=== PATIENT | female | born 1975 | race Caucasian/White ===

== ENCOUNTER 2024-09-30 18:42 | Emergency (ER) | payer SELFPAY ==
[2024-09-30] MEDS ORDERED: ATROPINE SULF 1 MG/10 ML SYR IV ONE (18:43)
[2024-09-30] MEDS ORDERED: SODIUM CHL 0.9% 1000 ML BAG IV ONE (18:43)
[2024-09-30] MEDS ORDERED: Calcium Chloride 10% INJ SYR IV ONE (18:43)
[2024-09-30] MEDS ORDERED: EPINEPHrine 1 MG/10 ML SYR IV ONE (18:43)
[2024-09-30] MEDS ORDERED: D50W 25 GM/50 ML SYRINGE IV ONE (18:43)
[2024-09-30] MEDS ORDERED: SODIUM CHL 0.9% 250 ML BAG IV ONE (18:43)
[2024-09-30] MEDS ORDERED: NOREPINEPHRINE BITARTRATE/D5W 4 MG/250 ML BAG IV ONE ×3 (19:06→23:22)
[2024-09-30 19:32] LABS: Protime INR 3.25
[2024-09-30 19:34] LABS: Absolute Eosinophils 0.1 K/uL (0-0.5); Absolute Monocytes 0.2 K/uL (0.1-1.3); Hematocrit 25.7 % (36.0-45.0); Hemoglobin 7.4 g/dL (12.0-15.0)
[2024-09-30] MEDS ORDERED: NA CHLORIDE 0.9% 250 ML ONE (19:42)
[2024-09-30 19:50] LABS: ALT/SGPT 309 U/L (13-56); Albumin 1.4 g/dL (3.4-5.0); Albumin/Globulin Ratio 0.6 (1.1-1.8); Alkaline Phosphatase 165 U/L (45-117); Anion Gap 36.9 mEq/L (5.0-15.0); BUN Blood Urea Nitrogen 44 mg/dL (7-18); Bilirubin Direct 0.2 mg/dL (0-0.2); Bilirubin Indirect, Calculated 0.1 mg/dL (0.2-0.8); Bilirubin Total 0.3 mg/dL (0.2-1.0); Globulin 2.4 g/dL (2.3-3.5); Glomerular Filtration Rate 35 ml/min (=/>90); Glucose Level 105 mg/dL (74-106); NT PRO-BNP 22168 pg/mL (<125); Protein, Total 3.8 g/dL (6.4-8.2); Sodium Level 140 mEq/L (136-145); Troponin High Sensitivity 17.1 pg/mL (<58.9)
[2024-09-30 19:52] LABS: AST/SGOT 622 U/L (15-37); Bicarbonate < 8 mEq/L (21-32); Magnesium 3.4 mg/dL (1.6-2.4)
[2024-09-30 19:54] LABS: Potassium 8.9 mEq/L (3.5-5.1)
[2024-09-30 20:10] LABS: Absolute Lymphocytes (CBC) 3.2 K/uL (0.7-4.9); Basophils % 0.7 % (0-1.3); Eosinophils % 1.1 % (0-4.4); MCH 31.6 pg (27.0-35.0); MCHC 28.7 g/dL (32.0-36.0); Monocytes % 3.8 % (3.3-12.3); Neutrophils % 45.4 % (41.7-73.7); Nucleated RBC Absolute Count 0.2 (0-0); Nucleated Red Blood Cells % 2.3 % (0-0); Platelets 447 thou/uL (152-406); RBC Red Blood Cell Count 2.34 M/uL (3.86-4.86); Red Cell Distribution Width 16.6 % (12.1-15.2)
[2024-09-30] MEDS ORDERED: INSULIN REGULAR (HUMAN) 100 UNIT/ML ONE (20:20)
[2024-09-30] MEDS ORDERED: NA CHLORIDE 0.9% 100 ML ONE ×2 (20:22→20:41)
[2024-09-30] MEDS ORDERED: TRANEXAMIC ACID 1,000 MG/10 ML VIAL IV ONE (20:22)
--- NOTE | 2024-09-30 20:23 | RAD REPORT ---
EXAMINATION: ONE VIEW CHEST XR CLINICAL INDICATION: Female, 49 years old.,rosc TECHNIQUE: Frontal chest projection is submitted. Examination is limited by patient positioning and t echnique. COMPARISON: No prior exam. FINDINGS: Endotracheal tube terminates 1.5 cm from the kirsty, directed somewhat to the right. Left IJ CVC reac hes the distal subclavian or innominate artery, but then curves again peripherally, its tip reaching the junction with the axillary vein. Enteric tube courses below the lower margin. Patchy air space opacities most notably in the peripheral right upper to midlung. Pronounced soft tissue along the right chest wall. Central interstitial prominence. No pneumothorax or sizable effusion. The hear t is normal in size. Mediastinal contours are unremarkable. IMPRESSION: Left IJ CVC is malpositioned, curving backwards along the subclavian vein, terminating near the junct ion with the axillary vein. Please consider repositioning. Patchy peripheral right upper to midlung airspace opacity, could relate to sequelae of aspiration, pu lmonary contusion, or early airspace disease. Other findings as above.
--- NOTE | 2024-09-30 20:26 | ER ---
Nurse's Notes [facility] Name: Elvia Pennington Age: 49 yrs Sex: Female : 1975 Arrival Date: 09/30/2024 Time: 18:42 Bed DIS6 Private MD: Diagnosis: Cardiopulmonary arrest;Hemorrhagic shock;Hyperkalemia;Diffuse subcutaneous emphysema, advanced brain hypoxia, intraperitoneal fluid, ileus, aspiration pneumonitis, ARDS, hyperkalemia, metabolic acidosis, high anion gap metabolic acidosis;Acute hypoxic respiratory failure, multiple organ failure Presentation: 09/30 18:42 Chief complaint: EMS states: CARDIOPULMONARY ARREST. Care prior to arrival: Assisted bp ventilation, Oral airway placed, CPR via thumper performed by bystander performed by EMS and is still in progress Medication(s) given: D50, 1 amp, EPI x4, BICARB x1 IV initiated. LEFT TIB IO Glucose check: 50. Compressions began at 17:45. 18:42 Method Of Arrival: EMS: [facility], [place] bp 18:42 Acuity: NASIM 1 bp 19:17 Coronavirus screen: At this time, the client does not indicate any symptoms associated bp with coronavirus-19. Ebola Screen: No symptoms or risks identified at this time. Initial Sepsis Screen: Does the patient meet any 2 criteria? No. Patient's initial sepsis screen is negative. Does the patient have a suspected source of infection? No. Patient's initial sepsis screen is negative. Risk Assessment: Do you want to hurt yourself or someone else? Unable to obtain. Onset of symptoms is unknown. 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 - Infectious Disease History:: unknown, CPR, unresponsive. - Family history:: not pertinent. - Social history:: Smoking status: unknown. Screenin:42 Abuse screen: Denies threats or abuse. Denies injuries from another. Nutritional bp screening: No deficits noted. Tuberculosis screening: No symptoms or risk factors identified. 19:14 [facility] ED Fall Risk Assessment (Adult) History of falling in the last 3 months, bp including since admission No falls in past 3 months (0 pts) Confusion or Disorientation No (0 pts) Intoxicated or Sedated Yes (3 pts) Impaired Gait No (0 pts) Mobility Assist Device Used No (0 pt) Altered Elimination Yes (1 pt) Score/Fall Risk Level 3 or more points = High Risk Maintained a safe environment. Assessment: 18:42 CPR assessment: unresponsive, pupils fixed \T\ dilated, no respiratory effort, Ambu bp ventilation, pulses present w/ compressions. Cardiac rhythm is PEA. General: Appears distressed, Behavior is unresponsive. Neuro: Level of Consciousness is unresponsive. EENT: No deficits noted. Cardiovascular: Rhythm is PEA. Respiratory: Airway is compromised. GI: COFFEE GROUND EMESIS. : No signs and/or symptoms were reported regarding the genitourinary system. Derm: No signs and/or symptoms reported regarding the dermatologic system. 18:42 Reassessment: PEA, CPR IN PROCESS. bp 18:43 Reassessment: EPI x1. bp 18:44 Reassessment: BGL 109, PEA. bp 18:46 Reassessment: PEA, EPI x1. bp 18:47 Reassessment: INTUBATED 7.5 \T\ 23. bp 18:49 Reassessment: SLOW PEA, ATROPINE x1. bp 18:51 Reassessment: PEA, EPI x1. bp 18:53 Reassessment: ROSC. bp 19:00 General: Appears in no apparent distress. Behavior is unresponsive. Pain: Unable to use al5 pain scale. Patient is intubated. Patient is unresponsive. 19:00 Neuro: Level of Consciousness is unresponsive, Oriented to none Pupils are fixed, al5 dilated. Cardiovascular: Pulses are palpable in right femoral artery, left femoral artery, left carotid pulse and right carotid pulse. Respiratory: Airway via oral intubation Respiratory effort is even, unlabored, Respiratory pattern is regular, symmetrical, Ventilator assessment: ET Tube: 7.5 23 cm at lip. Tidal Volume: 450 Respiratory Rate: 22 FiO2: 100%. PEEP: 5. GI: Abdomen is round distended. : No signs and/or symptoms were reported regarding the genitourinary system. EENT: No deficits noted. Derm: Skin is intact, Skin is dry, Skin is dusky, mottled. Musculoskeletal: No signs and/or symptoms reported regarding the musculoskeletal system. 20:00 Reassessment: Patient appears in no apparent distress at this time. No changes from al5 previously documented assessment. 20:18 Reassessment: patient went into PEA, CPR started at this time. MD at bedside. al5 20:22 Reassessment: ROSC at this time. al5 21:00 Reassessment: Patient appears in no apparent distress at this time. No changes from al5 previously documented assessment. 21:30 Reassessment: removed central line from L IJ per MD verbal order. al5 21:53 Reassessment: patient taken to CT at this time. al5 22:07 Reassessment: Patient appears in no apparent distress at this time. No changes from al5 previously documented assessment. 23:00 Reassessment: Patient appears in no apparent distress at this time. No changes from al5 previously documented assessment. 10/01 00:00 Reassessment: Patient appears in no apparent distress at this time. No changes from al5 previously documented assessment. 00:34 Reassessment: report given to life flight. al5 00:51 Reassessment: report given to ema GUZMAN at [facility]. al5 01:00 Reassessment: Patient appears in no apparent distress at this time. No changes from al5 previously documented assessment. gave report to life flight nurse. Vital Signs: 09/30 19:00 BP 67 / 48; Pulse 91; Resp 18; Pulse Ox 100% on ETT vent; Weight 65.77 kg; vc1 19:15 BP 71 / 57; Pulse 82; Resp 19; Pulse Ox 100% on ETT vent; al5 19:30 BP 62 / 48; Pulse 82; Resp 17; Pulse Ox 97% on ETT vent; al5 20:00 al5 20:23 al5 20:35 BP 108 / 64; Pulse 90; Resp 23; Temp 94.1(Ca); Pulse Ox 85% ; vc1 20:55 BP 83 / 53; Pulse 69; Resp 23; Pulse Ox 96% on ETT vent; al5 21:07 al5 22:15 BP 107 / 74; Pulse 97; Resp 23; Pulse Ox 99% on ETT vent; al5 22:30 BP 100 / 73; Pulse 97; Resp 23; Temp 93.7; Pulse Ox 100% on ETT vent; al5 22:45 BP 111 / 64; Pulse 108; Resp 22; Pulse Ox 99% on ETT vent; al5 23:00 BP 98 / 73; Pulse 109; Resp 22; Temp 93.5; Pulse Ox 99% on ETT vent; al5 23:15 BP 102 / 71; Pulse 107; Resp 22; Temp 93.4; Pulse Ox 99% on ETT vent; al5 23:30 BP 97 / 67; Pulse 108; Resp 22; Temp 93.4; Pulse Ox 100% on ETT vent; al5 23:45 BP 100 / 68; Pulse 106; Resp 22; Temp 93.3; Pulse Ox 100% on ETT vent; al5 03 00:00 BP 95 / 64; Pulse 105; Resp 22; Temp 93.3; Pulse Ox 100% on ETT vent; al5 00:15 BP 90 / 65; Pulse 108; Resp 22; Temp 93.4; Pulse Ox 99% on ETT vent; al5 00:30 BP 93 / 61; Pulse 103; Resp 22; Temp 93.4; Pulse Ox 100% on ETT vent; al5 00:45 BP 94 / 68; Pulse 104; Resp 23; Pulse Ox 99% on ETT vent; al5 03 20:00 see blood transfusion flow record for vitals al5 20:23 see blood transfusion flow sheet for vitals al5 21:07 see blood transfusion flow sheet for vitals al5 Nemo Coma Score: 23:46 Eye Response: none(1). Modifying Factors: Intubated. Motor Response: none(1). Verbal sp4 Response: none(1). Total: 3. ED Course: 18:46 Patient arrived in ED. db 18:47 Patient has correct armband on for positive identification. Intubation: 7.5 Fr. ETT bp placed orally. Performed by Aguilar Francisco MD Successful on first attempt. Placement verified by CO2 detector w/ + color change, auscultating bilateral breath sounds, Ventilated with Ambu bag. 18:54 Aguilar Francisco MD is Attending Physician. rt 19:00 Inserted saline lock: 18 gauge in right EJ, using aseptic technique. Blood collected. bp Flushed with 10 mL NS. NGT: inserted 14 Fr. other ORAL verified return of gastric contents, Placement verified by X-ray, to intermittent suction. Returned gastric contents. Initial lab(s) drawn, by me. 19:00 Arm band placed on right wrist. vc1 19:05 Nick Goode, RN is Primary Nurse. bp 19:08 Triage completed. bp 19:16 Provided Education on: NA. bp 19:20 Assisted provider with central line placement. Set up central line tray. Triple lumen vc1 line placed in left internal jugular. Line placed by Aguilar Francisco MD Placement verified by CXR, blood return, Dressed with Tegaderm, Blood was collected. Patient tolerated well. Time-out/Briefing performed prior to start of procedure? Yes. Was handwashing/sanitizing done immediately prior to procedure? Yes. Was patient positioned to in a way to prevent air embolism? Yes. Was procedure site sterilized? Yes, with chlorhexidine. Was the site allowed to dry? Yes. Was local anesthetic and/or sedation utilized? No. During the procedure, did the Practitioner(s) maintain a sterile field? Yes. Were unused ports clamped during insertion? Yes. Was a 2nd qualified MD obtained after 3 unsuccessful insertion attempts? N/A. Was blood aspirated from each lumen? Yes. After the procedure, did the Practitioner(s) clean the site and apply a sterile dressing? Yes. 19:34 Hogan cath inserted, using sterile technique, 16 Fr., by me, balloon inflated, to al5 gravity drainage, clamped. Patient tolerated well. 19:43 XRAY Chest (1 view) In Process Unspecified. EDMS 19:45 Abdomen Single View In Process Unspecified. EDMS 20:57 Attending Physician role handed off by Aguilar Francisco MD sp4 20:57 Madi Durbin MD is Attending Physician. sp4 21:23 Assisted provider with central line placement. Set up central line tray. Triple lumen al5 line placed in right femoral. Line placed by Madi Durbin MD Placement verified by blood return, Dressed with Tegaderm, Blood was collected. Patient tolerated well. Time-out/Briefing performed prior to start of procedure? Yes. Was handwashing/sanitizing done immediately prior to procedure? Yes. Was patient positioned to in a way to prevent air embolism? Yes. Was procedure site sterilized? Yes, with chlorhexidine. Was the site allowed to dry? Yes. Was local anesthetic and/or sedation utilized? No. During the procedure, did the Practitioner(s) maintain a sterile field? Yes. Were unused ports clamped during insertion? Yes. Was a 2nd qualified MD obtained after 3 unsuccessful insertion attempts? No. Was blood aspirated from each lumen? Yes. After the procedure, did the Practitioner(s) clean the site and apply a sterile dressing? Yes. 21:39 initiated transfer with [facility] spoke with Paulina \T\ 2025. vk 22:12 Angio Aorta For Dissection In Process Unspecified. EDMS 22:16 Patient was accepted to [facility] MICU per transfer center to Dr. Jordan russo \T\[id number], Report# [phone], Admin Approval Paulina Coto\T\2208. 22:55 Paulina from [facility] called and advised that at this time they vk will be putting the transfer on hold till the patient is more stable to transport via Life flight Dr. Durbin aware. 23:19 Per transfer center Paulina advised potassium level was to high for transfer and requested vk to call back when levels dropped. 03 00:12 Paulina from transfer center was called and updated on lower potassium level, Soskyler then vk asked about the ABGPH level advised on what it was, she asked for a repeat, when advised of new levels Paulina then stated that she would call back for ICU doc to doc. 00:40 Paulina from transfer center called and advised she would initiate transfer with [facility] life flight ETA 10 mins. 01:30 Patient transferred, IV remains in place. al5 01:30 One on one care 6 hours. al5 Administered Medications: 09/30 19:07 Drug: Norepinephrine IV 0.1 mcg/kg/min IV at calculated rate See Administration al5 Instructions; (Standard concentration 4 mg / 250 mL D5W); Recommended max rate 3 mcg/kg/min; Titrate 0.05 mcg/kg/min as often as every 5 minutes to achieve goal (see titration policy); Goal parameter MAP greater than 65 mmHg. Route: IV; Rate: calculated rate; Site: left jugular; 19:23 Follow up: Response: No adverse reaction; Blood pressure is unchanged; Rate change 25 al5 mcg/min 19:31 Follow up: Response: No adverse reaction; Blood pressure is unchanged; Rate change 30 al5 mcg/min 20:23 Follow up: Response: No adverse reaction; Rate change 20 mcg/min al5 20:27 Follow up: Response: No adverse reaction; Rate change 10 mcg/min al5 20:38 Follow up: Response: No adverse reaction; Blood pressure is elevated; Rate change 20 al5 mcg/min 20:43 Follow up: Response: Blood pressure is unchanged; Rate change 25 mcg/min al5 10/01 01:06 Follow up: Response: No adverse reaction; Blood pressure is lowered; Rate change 35 al5 mcg/min 01:10 Follow up: Response: No adverse reaction; IV Status: Infusion continued upon transfer al5 09/30 20:18 Drug: Calcium Chloride IVP 1 grams IVP once Route: IVP; Site: left jugular; al5 23:30 Follow up: Response: No adverse reaction al5 20:19 Drug: Calcium Chloride IVP 1 grams IVP once Route: IVP; Site: left jugular; al5 23:57 Follow up: Response: No adverse reaction al5 20:20 Drug: Sodium Bicarbonate IVP 2 amp IVP once; (50 mL); equals 50 mEq Route: IVP; Site: al5 left jugular; 23:26 Follow up: Response: No adverse reaction al5 20:21 Drug: D50W IVP 50 ml IVP once; (1 amp) Route: IVP; Site: right jugular; al5 23:20 Follow up: Response: No adverse reaction al5 20:21 Drug: Insulin Regular Human IVP 10 units IVP once {Co-Signature: vc1 (Joseline Galvez al5 RN).} Route: IVP; Site: right jugular; 23:19 Follow up: Response: No adverse reaction al5 20:24 Drug: tranexamic acid 1000 mg IV at calculated rate once; administer at a rate not to al5 exceed 100 mg per min Route: IV; Rate: calculated rate; Site: left jugular; 20:34 Follow up: Response: No adverse reaction; IV Status: Completed infusion al5 20:34 Drug: Pantoprazole IVP 80 mg IVP once Route: IVP; Site: right jugular; al5 23:11 Follow up: Response: No adverse reaction al5 20:35 Drug: Famotidine IVP 20 mg IVP once; dilute with 10 mL 0.9% NaCl; give over 2 minutes al5 Route: IVP; Site: right jugular; 23:26 Follow up: Response: No adverse reaction al5 20:36 Drug: Octreotide Sub-Q 50 mcg Sub-Q once Route: Sub-Q; Site: right lower abdomen; al5 23:12 Follow up: Response: No adverse reaction al5 20:57 Drug: Cefepime IVPB 2 grams IVPB at 200 ml/hr once over 30 mins; (mix in NS 100 mL) al5 Route: IVPB; Rate: 200 ml/hr; Infused Over: 30 mins; Site: right femoral; 21:27 Follow up: Response: No adverse reaction; IV Status: Completed infusion; IV Intake: al5 100ml 22:11 Drug: Sodium Bicarbonate IVP 1 amp IVP once; (50 mL); equals 50 mEq Route: IVP; Site: [facility] left jugular; 23:52 Follow up: Response: No adverse reaction al5 22:12 Drug: Sodium Bicarbonate IVP 1 amp IVP once; (50 mL); equals 50 mEq Route: IVP; Site: [facility] left jugular; 10/01 00:25 Follow up: Response: No adverse reaction al5 09/30 22:32 Drug: Albuterol Inhalation 2.5 mg Inhalation once Route: Inhalation; al5 23:42 Follow up: Response: No adverse reaction al5 22:32 Drug: NS 0.9% IV 1000 ml IV at 125 ml/hr once; to be given as a bolus over 60 minutes al5 Route: IV; Rate: 125 ml/hr; Site: right femoral; 10/01 01:11 Follow up: Response: No adverse reaction; IV Status: Infusion continued upon transfer al5 09/30 22:32 Drug: NS 0.9% IV 1000 ml IV at 1000 ml once; to be given as a bolus over 60 minutes al5 Route: IV; Rate: 1000 ml; Site: right femoral; 10/01 00:19 Follow up: Response: No adverse reaction; IV Status: Completed infusion; IV Intake: al5 1000ml 09/30 22:33 Drug: Sodium Bicarbonate IVP 1 amp IVP once; (50 mL); equals 50 mEq Route: IVP; Site: al5 right femoral; 23:49 Follow up: Response: No adverse reaction al5 22:33 Drug: Sodium Bicarbonate IVP 1 amp IVP once; (50 mL); equals 50 mEq Route: IVP; Site: al5 right femoral; 23:49 Follow up: Response: No adverse reaction al5 22:33 Drug: Sodium Bicarbonate IVP 1 amp IVP once; (50 mL); equals 50 mEq Route: IVP; Site: al5 right femoral; 23:49 Follow up: Response: No adverse reaction al5 22:35 Drug: Albumin IVPB 25 grams 100 ml IVPB once; (Note: Albumin 25% concentration) Volume: al5 100 ml; Route: IVPB; Site: right femoral; 23:37 Follow up: Response: No adverse reaction; IV Intake: 100ml al5 23:38 Follow up: IV Status: Completed infusion al5 23:04 Drug: Albumin IVPB 25 grams 100 ml IVPB once; (Note: Albumin 25% concentration) Volume: al5 100 ml; Route: IVPB; Site: right femoral; 10/01 00:20 Follow up: Response: No adverse reaction; IV Status: Completed infusion; IV Intake: al5 100ml 00:20 Not Given (Other Intervention Used): dopamine(400mg/250ml premix) 5 mcg/kg/min IV at al5 calculated rate See Administration Instructions; Recommended max rate 20 mcg/kg/min; Titrate 2.5 mcg/kg/min as often as every 5 minutes to achieve goal (see titration policy); Goal parameter MAP greater than 65 mmHg. [*Low doses 1 to 4 mcg/kg/min may result in hypotension, decreased SVR*] 00:20 Drug: Calcium Gluconate IVPB 2 grams IVPB once over 60 mins; (mix in NS 100 mL) Route: al5 IVPB; Infused Over: 60 mins; Site: right femoral; 01:14 Follow up: Response: No adverse reaction; IV Status: Infusion continued upon transfer al5 01:08 Drug: Vasopressin IV 0.02 units/min IV at calculated rate continuous Route: IV; Rate: al5 calculated rate; Site: right femoral; 01:10 Follow up: Response: No adverse reaction; IV Status: Infusion continued upon transfer al5 01:08 Drug: Sodium Bicarb 8.4% - Sodium Bicarbonate IVP 125 units/min 10 ml IVP in affected al5 area once; Not IVP, sub-Q administration with Lidocaine to wound Volume: 10 ml; Route: IVP; Site: right femoral; 01:11 Follow up: Response: No adverse reaction; No adverse reaction; infusion continued upon al5 transfer Medication: 09/30 20:20 Blood products: PRBCs X 1 unit given. al5 20:48 VIS not applicable for this client. vc1 21:07 Blood products: PRBCs X 1 unit given. al5 22:00 Blood products: FFP X 1 unit given. al5 Intake: 21:27 IV: 100ml; Total: 100ml. al5 23:37 IV: 100ml; Total: 200ml. al5 10/01 00:19 IV: 1000ml; Total: 1200ml. al5 00:20 IV: 100ml; Total: 1300ml. al5 Outcome: 09/30 19:00 Outcome Resuscitation successful bp 20:25 ER care complete, transfer ordered by . rt 10/01 01:30 Transferred by helicopter to [facility], [place] critical Instructed on the need for transfer, 04:16 Patient left the ED. al5 Signatures: Dispatcher [employer] EDMS Nick Goode RN RN bp Calcote, Vanessa, RN RN vc1 Odalys Sampson, RN RN Aguilar Marmolejo MD MD rt Madi Durbin MD MD sp4 Kiesha Haque Amanda, RN RN al5 Joseline Galvez RN vc1 Corrections: (The following items were deleted from the chart) 03 23:39 23:25 Sodium Bicarbonate IVP 2 amp IVP in left jugular al5 al5 10/01 00:33 03 20:38 Rate change 20 mcg/min al5 al5 10/01 00:34 00:33 Response: No adverse reaction; Blood pressure is elevated; Rate change 20 mcg/min al5 al5 04:16 01:00 Reassessment: Patient appears in no apparent distress at this time. No changes al5 from previously documented assessment. al5 05:29 03 22:45 BP 111 / 64; Pulse 10bpm; Resp 22bpm; Pulse Ox 99% ET / Ventilator; al5 al5
--- NOTE | 2024-09-30 20:26 | EDPHYS ---
Physician Documentation [facility] Name: Elvia Pennington Age: 49 yrs Sex: Female : 1975 Arrival Date: 09/30/2024 Time: 18:42 Bed DIS6 Private MD: ED Physician Madi Durbin HPI: 09/30 20:47 This 49 yrs old Female presents to ER via EMS with complaints of CPR. rt 20:47 Patient presents to the ED with cardiopulmonary arrest, patient reportedly had a rt cholecystectomy [facility] on Friday. The patient was reportedly well, was last talked to at about 5 PM. Patient was found unresponsive with coffee-ground emesis near her. CPR was immediately started, EMS was called, CPR was continued, the rhythm was PEA. Patient under brief return of spontaneous circulation by EMS, however, lost pulses again. No further history could be obtained, symptoms are severe in severity,. 21:00 3 days post op after cholecystectomy . 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 - Infectious Disease History:: unknown, CPR, unresponsive. - Family history:: not pertinent. - Social history:: Smoking status: unknown. ROS: 20:47 Unable to obtain ROS due to altered mental status, patient is on ventilator, rt 23:46 Constitutional: ROS not available secondary to unresponsive condition sp4 23:46 All other systems are negative, Exam: 20:47 Constitutional: The patient appears Unresponsive rt 20:47 Head/face: Normocephalic, atraumatic. 20:47 Eyes: Pupils midline, fixed, dilated. 20:47 Neck: No JVD, 20:47 Chest/axilla: No deformity. 20:47 Cardiovascular: Pulseless, 20:47 ECG was reviewed by the Attending Physician. 20:47 Respiratory: Ventilated breath sounds, apneic, 20:47 Abdomen/GI: Mildly distended, bruising noted, 20:47 Musculoskeletal/extremity: No deformity. 20:47 Skin: Cool, pale. 20:47 Neuro: GCS 3 T, 23:46 Constitutional: Unresponsive female, nontoxic-appearing, pupils dilated and fixed, no sp4 gag reflex, no oculocephalic reflex, bilateral corneal edema, bilateral conjunctival edema, sign of advanced brain hypoxia Vital Signs: 19:00 BP 67 / 48; Pulse 91; Resp 18; Pulse Ox 100% on ETT vent; Weight 65.77 kg; vc1 19:15 BP 71 / 57; Pulse 82; Resp 19; Pulse Ox 100% on ETT vent; al5 19:30 BP 62 / 48; Pulse 82; Resp 17; Pulse Ox 97% on ETT vent; al5 20:00 al5 20:23 al5 20:35 BP 108 / 64; Pulse 90; Resp 23; Temp 94.1(Ca); Pulse Ox 85% ; vc1 20:55 BP 83 / 53; Pulse 69; Resp 23; Pulse Ox 96% on ETT vent; al5 21:07 al5 22:15 BP 107 / 74; Pulse 97; Resp 23; Pulse Ox 99% on ETT vent; al5 22:30 BP 100 / 73; Pulse 97; Resp 23; Temp 93.7; Pulse Ox 100% on ETT vent; al5 22:45 BP 111 / 64; Pulse 108; Resp 22; Pulse Ox 99% on ETT vent; al5 23:00 BP 98 / 73; Pulse 109; Resp 22; Temp 93.5; Pulse Ox 99% on ETT vent; al5 23:15 BP 102 / 71; Pulse 107; Resp 22; Temp 93.4; Pulse Ox 99% on ETT vent; al5 23:30 BP 97 / 67; Pulse 108; Resp 22; Temp 93.4; Pulse Ox 100% on ETT vent; al5 23:45 BP 100 / 68; Pulse 106; Resp 22; Temp 93.3; Pulse Ox 100% on ETT vent; al5 03/07 00:00 BP 95 / 64; Pulse 105; Resp 22; Temp 93.3; Pulse Ox 100% on ETT vent; al5 00:15 BP 90 / 65; Pulse 108; Resp 22; Temp 93.4; Pulse Ox 99% on ETT vent; al5 00:30 BP 93 / 61; Pulse 103; Resp 22; Temp 93.4; Pulse Ox 100% on ETT vent; al5 00:45 BP 94 / 68; Pulse 104; Resp 23; Pulse Ox 99% on ETT vent; al5 03/06 20:00 see blood transfusion flow record for vitals al5 20:23 see blood transfusion flow sheet for vitals al5 21:07 see blood transfusion flow sheet for vitals al5 Jesus Coma Score: 23:46 Eye Response: none(1). Modifying Factors: Intubated. Motor Response: none(1). Verbal sp4 Response: none(1). Total: 3. Procedures: 20:47 CPR: See CPR flow sheet. Initial patient assessment: unresponsive, The presenting rt cardiac rhythm is PEA. respirations assisted with BVM, Compressions: began prior to arrival. Meds given: See Meds list. regained rhythm. Intubation: Intubated orally using For GlideScope with 7.5 mm ETT. was successful on first attempt. Ventilated with Ambu bag. Tube secured with ETT venegas Placement verified by CXR, CO2 detector with (+) color change. Central Line: the site was prepped with Chlorhexidine, a triple lumen catheter was inserted, in the left internal jugular vein, in 1 attempts. placement was verified, by CXR, by blood return, CXR shows that the line takes a 180 degree turn into the subclavian vein, however, it draws blood and flushes without difficulty, believe that is okay to use, was difficult to place line secondary to kinking., the site was dressed with Chlorhexidine impregnated Tegaderm. MDM: 18:54 Medical Screening Exam initiated rt 23:42 ED course: EXAM: CTAngio Aorta For Dissection HISTORY: CPR in progress CTA chest , sp4 abdomen , pelvis Bed Name: 3 COMPARISON: None TECHNIQUE: Multiple contiguous axial images were obtained a CTA of the chest and abdomen with contrast per aortic dissection protocol. Sagittal and coronal 3-D MIP reformats were performed. One or more of the following dose reduction techniques were used: Automated exposure control, adjustment of the mA and kV according to patient size, and iterative reconstruction. Unless otherwise specified, incidental findings do not require dedicated imaging follow-up. FINDINGS: PULMONARYARTERIES: Normal in caliber without filling defects to suggest pulmonary emboli. MEDIASTINUM: No hilar or mediastinal lymphadenopathy. LUNGS: Multifocal patchy airspace opacities, most notably with central predominant, with associated interlobular septal thickening. Consolidative opacities more so in the left upper lobe with air bronchogram. Endotracheal tube terminates within 12 mm above the kirsty slightly directed to the right. Trace layering pleural effusions. No pneumothorax. LIVER: Unremarkable. KIDNEYS: Unremarkable. SPLEEN: Innumerable foci of calcifications, suggesting sequelae of remote granulomatous infection.. PANCREAS: Unremarkable. BOWEL: Enteric tube within a decompressed stomach. Up to moderate diffuse distention of proximal small bowel with gradual transition to nondistention. No segmental hypoenhancement within limits of arterial phase evaluation. Mild to moderate free ascites. Mild free air within the nondependent peritoneal cavity. Status post cholecystectomy.. RETROPERITONEUM: No lymphadenopathy Bladder is decompressed with Hogan catheter in place. BONES: Degenerative changes in the spine. SOFT TISSUES: Extensive soft tissue emphysema along the right chest wall, and abdominal wall especially anteriorly, extending to the groins. Poorly localized hematoma along the left anterior lower neck. Redemonstration of a looped appearance of the left IJ CVC, its tip present along the distal axillary vein. Right femoral venous catheter seen. ASCENDING THORACIC AORTA: Normal caliber without evidence of dissection or aneurysmal dilatation. DESCENDING THORACIC AORTA: Normal caliber without evidence of dissection or aneurysmal dilatation. ABDOMINAL AORTA: Normal caliber without evidence of dissection or aneurysmal dilatation. Mild to moderate atherosclerotic calcific and noncalcific plaque most prominent along the infrarenal abdominal aorta. CELIAC TRUNK: Kinked appearance of the proximal celiac trunk, with moderate narrowing, and some mass effect along the superior wall of the vessel. SMA: Patent ANDREW: Patent RENAL ARTERIES: Bilateral single renal arteries without significant atherosclerotic disease IMPRESSION: No evidence of thoracic or abdominal aortic aneurysm or dissection. No contrast extravasation in the cholecystectomy bed. Multifocal patchy airspace opacities as above, suggesting pulmonary edema or ARDS. Confluent opacification in the left upper lobe may reflect additional pneumonia or sequelae of aspiration. Poorly localized hematoma along the left anterior lower neck. Redemonstration of a looped appearance of the left IJ CVC, its tip present along the distal axillary vein. Right femoral venous catheter has been placed. Up to moderate diffuse distention of proximal small bowel, with gradual transition to nondistended bowel. This suggests ileus rather than bowel obstruction. Mild free intraperitoneal air, may relate to recent laparoscopy. Moderate ascites. Extensive soft tissue emphysema along the chest and abdominal wall as above. THIS REPORT CONTAINS FINDINGS THAT MAYBE CRITICAL TO PATIENT CARE. The findings were verbally communicated via telephone to Madi Durbin MD on 09/30/2024 10:47 PM. . 23:44 ED course: EXAM: XR Abdomen Single View HISTORY: [facility] MAIN OG tube COMPARISON: None sp4 FINDINGS: Single view of the abdomen shows a nonspecific, nonobstructive bowel gas pattern. Enteric tube tip projects at the proximal body of the stomach. Sequelae of cholecystectomy. No suspicious calcifications are seen. The bones are unremarkable. IMPRESSION: Enteric tube tip projects at the proximal body of stomach. . ED course: EXAMINATION: ONE VIEW CHEST XR CLINICAL INDICATION: Female, 49 years old.,rosc TECHNIQUE: Frontal chest projection is submitted. Examination is limited by patient positioning and technique. COMPARISON: No prior exam. FINDINGS: Endotracheal tube terminates 1.5 cm from the kirsty, directed somewhat to the right. Left IJ CVC reaches the distal subclavian or innominate artery, but then curves again peripherally, its tip reaching the junction with the axillary vein. Enteric tube courses below the lower margin. Patchy airspace opacities most notably in the peripheral right upper to midlung. Pronounced soft tissue along the right chest wall. Central interstitial prominence. No pneumothorax or sizable effusion. The heart is normal in size. Mediastinal contours are unremarkable. IMPRESSION: Left IJ CVC is malpositioned, curving backwards along the subclavian vein, terminating near the junction with the axillary vein. Please consider repositioning. Patchy peripheral right upper to midlung airspace opacity, could relate to sequelae of aspiration, pulmonary contusion, or early airspace disease. Other findings as above. . 23:45 Differential diagnosis: arrythmia, cardiac arrest, respiratory arrest, traumatic sp4 injury, overdose, asphyxiation, renal failure. Data reviewed: vital signs, nurses notes, lab test result(s), EKG, radiologic studies, CT scan, plain films. Consideration of Admission/Observation Escalation of care including admission/observation considered. ED course: Potassium decreased to 7.8. Patient this time stable for transfer with aeromedical transport. 10/01 00:33 Management of patient was discussed with the following: Valet Parking Attendant: ICU attending and sp4 general surgeon at [facility]. ED course: Patient potassium is improved to 7.8, CO2 15, creatinine 1.68, pH improved from 6.53-to 6.92. Thus far blood pressure has been stable on Levophed at 25 mics per minute. Last blood pressure 93/61 heart rate 108. ED course: ICU attending at [facility] has requested vasopressin infusion and bicarbonate infusion which we will initiate here. At this time patient is stable for aeromedical transport.. 09/30 18:55 Order name: Basic Metabolic Panel; Complete Time: 20:12 rt 09/30 18:55 Order name: CBC with Diff; Complete Time: 22:21 rt 09/30 18:55 Order name: LFT's; Complete Time: 20:12 rt 09/30 18:55 Order name: Magnesium; Complete Time: 20:12 rt 09/30 18:55 Order name: NT PRO-BNP; Complete Time: 20:12 rt 09/30 18:55 Order name: PT-INR; Complete Time: 19:36 rt 09/30 18:55 Order name: Troponin HS; Complete Time: 20:12 rt 09/30 18:55 Order name: Type And Screen rt 09/30 18:55 Order name: ABG; Complete Time: 21:22 rt 09/30 18:58 Order name: UAM; Complete Time: 00:00 rt 09/30 19:25 Order name: Lactate w/ 2H reflex if indic.; Complete Time: 00:00 rt 09/30 19:46 Order name: Packed RBC Leukored EDMS 09/30 19:46 Order name: RBC Leukored Pheresis EDMS 09/30 20:39 Order name: Frozen Plasma 24 EDMS 09/30 21:17 Order name: BMP; Complete Time: 22:04 vc1 09/30 22:17 Order name: Manual Differential; Complete Time: 22:21 EDMS 09/30 22:21 Order name: BMP; Complete Time: 23:40 sp4 10/01 00:00 Order name: ABO/RH no charge; Complete Time: 01:48 EDMS 10/01 00:01 Order name: ABG; Complete Time: 00:35 sp4 10/01 00:02 Order name: CBC with Diff; Complete Time: 01:48 sp4 10/01 00:12 Order name: Ghost Lactate-NO COLLECT Timer EDMS 10/01 00:19 Order name: Lactate w/ 2H reflex if indic.; Complete Time: 01:48 sp4 10/01 01:58 Order name: Ghost Lactate-NO COLLECT Timer EDMS 09/30 18:55 Order name: XRAY Chest (1 view); Complete Time: 20:25 rt 09/30 19:41 Order name: Abdomen Single View; Complete Time: 20:58 EDMS 09/30 22:02 Order name: Angio Aorta For Dissection; Complete Time: 22:54 EDMS 09/30 18:55 Order name: EKG; Complete Time: 18:56 rt 09/30 18:55 Order name: Cardiac monitoring; Complete Time: 20:36 rt 09/30 18:55 Order name: EKG - Nurse/Tech; Complete Time: 20:36 rt 09/30 18:55 Order name: IV Saline Lock; Complete Time: 20:36 rt 09/30 18:55 Order name: Labs collected and sent; Complete Time: 20:36 rt 09/30 18:55 Order name: O2 Per Protocol; Complete Time: 20:36 rt 09/30 18:55 Order name: O2 Sat Monitoring; Complete Time: 20:36 rt EC/06 20:47 Rate is 82 beats/min. Rhythm is regular, A fib with No ectopy. QRS interval is normal. rt QT interval is normal. No Q waves. No ST changes noted. Interpreted by me. Administered Medications: 19:07 Drug: Norepinephrine IV 0.1 mcg/kg/min IV at calculated rate See Administration al5 Instructions; (Standard concentration 4 mg / 250 mL D5W); Recommended max rate 3 mcg/kg/min; Titrate 0.05 mcg/kg/min as often as every 5 minutes to achieve goal (see titration policy); Goal parameter MAP greater than 65 mmHg. Route: IV; Rate: calculated rate; Site: left jugular; 19:23 Follow up: Response: No adverse reaction; Blood pressure is unchanged; Rate change 25 al5 mcg/min 19:31 Follow up: Response: No adverse reaction; Blood pressure is unchanged; Rate change 30 al5 mcg/min 20:23 Follow up: Response: No adverse reaction; Rate change 20 mcg/min al5 20:27 Follow up: Response: No adverse reaction; Rate change 10 mcg/min al5 20:38 Follow up: Response: No adverse reaction; Blood pressure is elevated; Rate change 20 al5 mcg/min 20:43 Follow up: Response: Blood pressure is unchanged; Rate change 25 mcg/min al5 10/01 01:06 Follow up: Response: No adverse reaction; Blood pressure is lowered; Rate change 35 al5 mcg/min 01:10 Follow up: Response: No adverse reaction; IV Status: Infusion continued upon transfer al5 09/30 20:18 Drug: Calcium Chloride IVP 1 grams IVP once Route: IVP; Site: left jugular; al5 23:30 Follow up: Response: No adverse reaction al5 20:19 Drug: Calcium Chloride IVP 1 grams IVP once Route: IVP; Site: left jugular; al5 23:57 Follow up: Response: No adverse reaction al5 20:20 Drug: Sodium Bicarbonate IVP 2 amp IVP once; (50 mL); equals 50 mEq Route: IVP; Site: al5 left jugular; 23:26 Follow up: Response: No adverse reaction al5 20:21 Drug: D50W IVP 50 ml IVP once; (1 amp) Route: IVP; Site: right jugular; al5 23:20 Follow up: Response: No adverse reaction al5 20:21 Drug: Insulin Regular Human IVP 10 units IVP once {Co-Signature: vc1 (Joseline Galvez al5 RN).} Route: IVP; Site: right jugular; 23:19 Follow up: Response: No adverse reaction al5 20:24 Drug: tranexamic acid 1000 mg IV at calculated rate once; administer at a rate not to al5 exceed 100 mg per min Route: IV; Rate: calculated rate; Site: left jugular; 20:34 Follow up: Response: No adverse reaction; IV Status: Completed infusion al5 20:34 Drug: Pantoprazole IVP 80 mg IVP once Route: IVP; Site: right jugular; al5 23:11 Follow up: Response: No adverse reaction al5 20:35 Drug: Famotidine IVP 20 mg IVP once; dilute with 10 mL 0.9% NaCl; give over 2 minutes al5 Route: IVP; Site: right jugular; 23:26 Follow up: Response: No adverse reaction al5 20:36 Drug: Octreotide Sub-Q 50 mcg Sub-Q once Route: Sub-Q; Site: right lower abdomen; al5 23:12 Follow up: Response: No adverse reaction al5 20:57 Drug: Cefepime IVPB 2 grams IVPB at 200 ml/hr once over 30 mins; (mix in NS 100 mL) al5 Route: IVPB; Rate: 200 ml/hr; Infused Over: 30 mins; Site: right femoral; 21:27 Follow up: Response: No adverse reaction; IV Status: Completed infusion; IV Intake: al5 100ml 22:11 Drug: Sodium Bicarbonate IVP 1 amp IVP once; (50 mL); equals 50 mEq Route: IVP; Site: [facility] left jugular; 23:52 Follow up: Response: No adverse reaction al5 22:12 Drug: Sodium Bicarbonate IVP 1 amp IVP once; (50 mL); equals 50 mEq Route: IVP; Site: [facility] left jugular; 10/01 00:25 Follow up: Response: No adverse reaction al5 09/30 22:32 Drug: Albuterol Inhalation 2.5 mg Inhalation once Route: Inhalation; al5 23:42 Follow up: Response: No adverse reaction al5 22:32 Drug: NS 0.9% IV 1000 ml IV at 125 ml/hr once; to be given as a bolus over 60 minutes al5 Route: IV; Rate: 125 ml/hr; Site: right femoral; 10/01 01:11 Follow up: Response: No adverse reaction; IV Status: Infusion continued upon transfer al5 09/30 22:32 Drug: NS 0.9% IV 1000 ml IV at 1000 ml once; to be given as a bolus over 60 minutes al5 Route: IV; Rate: 1000 ml; Site: right femoral; 10/01 00:19 Follow up: Response: No adverse reaction; IV Status: Completed infusion; IV Intake: al5 1000ml 09/30 22:33 Drug: Sodium Bicarbonate IVP 1 amp IVP once; (50 mL); equals 50 mEq Route: IVP; Site: ma5 right femoral; 23:49 Follow up: Response: No adverse reaction al5 22:33 Drug: Sodium Bicarbonate IVP 1 amp IVP once; (50 mL); equals 50 mEq Route: IVP; Site: al5 right femoral; 23:49 Follow up: Response: No adverse reaction al5 22:33 Drug: Sodium Bicarbonate IVP 1 amp IVP once; (50 mL); equals 50 mEq Route: IVP; Site: al5 right femoral; 23:49 Follow up: Response: No adverse reaction al5 22:35 Drug: Albumin IVPB 25 grams 100 ml IVPB once; (Note: Albumin 25% concentration) Volume: al5 100 ml; Route: IVPB; Site: right femoral; 23:37 Follow up: Response: No adverse reaction; IV Intake: 100ml al5 23:38 Follow up: IV Status: Completed infusion al5 23:04 Drug: Albumin IVPB 25 grams 100 ml IVPB once; (Note: Albumin 25% concentration) Volume: al5 100 ml; Route: IVPB; Site: right femoral; 10/01 00:20 Follow up: Response: No adverse reaction; IV Status: Completed infusion; IV Intake: al5 100ml 00:20 Not Given (Other Intervention Used): dopamine(400mg/250ml premix) 5 mcg/kg/min IV at al5 calculated rate See Administration Instructions; Recommended max rate 20 mcg/kg/min; Titrate 2.5 mcg/kg/min as often as every 5 minutes to achieve goal (see titration policy); Goal parameter MAP greater than 65 mmHg. [*Low doses 1 to 4 mcg/kg/min may result in hypotension, decreased SVR*] 00:20 Drug: Calcium Gluconate IVPB 2 grams IVPB once over 60 mins; (mix in NS 100 mL) Route: al5 IVPB; Infused Over: 60 mins; Site: right femoral; 01:14 Follow up: Response: No adverse reaction; IV Status: Infusion continued upon transfer al5 01:08 Drug: Vasopressin IV 0.02 units/min IV at calculated rate continuous Route: IV; Rate: al5 calculated rate; Site: right femoral; 01:10 Follow up: Response: No adverse reaction; IV Status: Infusion continued upon transfer al5 01:08 Drug: Sodium Bicarb 8.4% - Sodium Bicarbonate IVP 125 units/min 10 ml IVP in affected al5 area once; Not IVP, sub-Q administration with Lidocaine to wound Volume: 10 ml; Route: IVP; Site: right femoral; 01:11 Follow up: Response: No adverse reaction; No adverse reaction; infusion continued upon al5 transfer Disposition: 09/30 23:47 Critical Care:. sp4 Disposition Summary: 09/30/24 20:25 Transfer Ordered Notes: Transfer Location: [facility] rt Reason: Higher level of care rt Condition: Critical rt Problem: new rt Symptoms: have improved rt Accepting Physician: (10/01/24 04:16) al5 Diagnosis - Cardiopulmonary arrest rt - Hemorrhagic shock rt - Hyperkalemia rt - Diffuse subcutaneous emphysema, advanced brain hypoxia, intraperitoneal fluid, sp4 ileus, aspiration pneumonitis, ARDS, hyperkalemia, metabolic acidosis, high anion gap metabolic acidosis - Acute hypoxic respiratory failure, multiple organ failure sp4 Forms: - Medication Reconciliation Form rt - SBAR form rt Critical care time excluding procedures: 23:47 Critical care time: Bedside Care: 46 minutes, Consultation: 12 minutes, Family sp4 Intervention: 12 minutes. Total time: 70 minutes Signatures: Dispatcher [employer] EDJoseline Jang RN RN vc1 Amee Alcantara PA-C PA-C sb4 Aguilra Francisco MD MD rt Madi Durbin MD MD sp4 Opal Henson RN RN al5 Joseline Galvez RN vc1 Corrections: (The following items were deleted from the chart) 18:56 18:56 Chest Abdomen Pelvis Wo Con+CT.RAD.BRZ ordered. EDMS EDMS 18:56 18:56 Arterial Blood Gas+RC.LAB.BRZ ordered. EDMS EDMS 19:44 19:39 Abdomen 1 View (KUB)+RAD.RAD.BRZ ordered. EDMS EDMS 21:06 18:56 Head Brain Wo Cont+CT.RAD.BRZ ordered. EDMS EDMS 21:54 21:26 Abdomen Complete+US.RAD.BRZ ordered. EDMS EDMS 22:02 21:27 Chest Abdomen Pelvis Wo Con+CT.RAD.BRZ ordered. EDMS EDMS 22:02 21:28 Chest Abdomen Pelvis W Con+CT.RAD.BRZ ordered. EDMS EDMS 23:48 20:25 rt sp4 10/01 00:02 00:02 Arterial Blood Gas+RC.LAB.BRZ ordered. EDMS EDMS 00:03 00:03 CBC+H.LAB.BRZ ordered. EDMS EDMS 04:16 06 23:48 sp4 al5
[2024-09-30] MEDS ORDERED: FAMOTIDINE 20 MG/2 ML VIAL IV ONE (20:30)
[2024-09-30] MEDS ORDERED: PANTOPRAZOLE 40 MG INJ ONE (20:30)
[2024-09-30] MEDS ORDERED: OCTREOTIDE ACETATE 100 MCG/ML ONE (20:30)
--- NOTE | 2024-09-30 20:31 | RAD REPORT ---
EXAM: XR Abdomen Single View HISTORY: [facility] MAIN OG tube COMPARISON: None FINDINGS: Single view of the abdomen shows a nonspecific, nonobstructive bowel gas pattern. Enteric t ube tip projects at the proximal body of the stomach. Sequelae of cholecystectomy. No suspicious calcifications are seen. The bones are unremarkable. IMPRESSION: Enteric tube tip projects at the proximal body of stomach.
[2024-09-30] MEDS ORDERED: CEFEPIME 2 GM VIAL ONE (20:41)
[2024-09-30 21:11] LABS: Blood Gas Oxyhemoglobin 72.7 % (94-97); Blood O2 Saturation 74.6 % (92-98.5)
[2024-09-30] MEDS ORDERED: DOPAMINE HCL IN DEXTROSE IV ONE (21:15)
[2024-09-30 21:58] LABS: Anion Gap 37.3 mEq/L (5.0-15.0); Potassium 9.3 mEq/L (3.5-5.1)
[2024-09-30 22:16] LABS: Band Neutrophils 12 % (0-1); Differential Total Cells Count 100; Eosinophils 1 % (0-3); Lymphocytes 69 % (15-42); Monocytes 2 % (0-10); Nucleated Red Blood Cells 9 /100WBC; Platelet Estimate INCR; Segmented Neutrophils 16 % (40-80)
[2024-09-30 22:17] LABS: Blood Morphology Comment NOTED (NOT SEEN); Macrocytosis 1+; Poikilocytosis 1+
[2024-09-30 22:18] LABS: Burr Cells 1+
[2024-09-30] MEDS ORDERED: NA CHLORIDE 0.9% 1,000 ML ONE (22:27)
[2024-09-30] MEDS ORDERED: ALBUMIN HUMAN 25% 200 ML IV ONE (22:27)
[2024-09-30] MEDS ORDERED: ALBUTEROL 2.5 MG/3 ML NEB SOL ONE (22:35)
--- NOTE | 2024-09-30 22:50 | RAD REPORT ---
EXAM: CT Angio Aorta For Dissection HISTORY: CPR in progress CTA chest , abdomen , pelvis Bed Name: 3 COMPARISON: None TECHNIQUE: Multiple contiguous axial images were obtained a CTA of the chest and abdomen with contras t per aortic dissection protocol. Sagittal and coronal 3-D MIP reformats were performed. One or more of the following dose reduction techniques were used: Automated exposure control, adjustment of the mA and kV according to patient size, and iterative reconstruction. Unless otherwise specified, incidental findings do not require dedicated imaging follow-up. FINDINGS: PULMONARY ARTERIES: Normal in caliber without filling defects to suggest pulmonary emboli. MEDIASTINUM: No hilar or mediastinal lymphadenopathy. LUNGS: Multifocal patchy airspace opacities, most notably with central predominant, with associated i nterlobular septal thickening. Consolidative opacities more so in the left upper lobe with air bronchogram. Endotracheal tube terminates within 12 mm above the kirsty slightly directed to the righ t. Trace layering pleural effusions. No pneumothorax. LIVER: Unremarkable. KIDNEYS: Unremarkable. SPLEEN: Innumerable foci of calcifications, suggesting sequelae of remote granulomatous infection.. PANCREAS: Unremarkable. BOWEL: Enteric tube within a decompressed stomach. Up to moderate diffuse distention of proximal smal l bowel with gradual transition to nondistention. No segmental hypoenhancement within limits of arterial phase evaluation. Mild to moderate free ascites. Mild free air within the nondependent peritoneal cavity. Status post c holecystectomy.. RETROPERITONEUM: No lymphadenopathy Bladder is decompressed with Hogan catheter in place. BONES: Degenerative changes in the spine. SOFT TISSUES: Extensive soft tissue emphysema along the right chest wall, and abdominal wall especial ly anteriorly, extending to the groins. Poorly localized hematoma along the left anterior lower neck. Redemonstration of a looped appearance of the left IJ CVC, its tip present along the distal axi llary vein. Right femoral venous catheter seen. ASCENDING THORACIC AORTA: Normal caliber without evidence of dissection or aneurysmal dilatation. DESCENDING THORACIC AORTA: Normal caliber without evidence of dissection or aneurysmal dilatation. ABDOMINAL AORTA: Normal caliber without evidence of dissection or aneurysmal dilatation. Mild to moderate atherosclerotic calcific and noncalcific plaque most prominent along the infrarenal abdominal aorta. CELIAC TRUNK: Kinked appearance of the proximal celiac trunk, with moderate narrowing, and some mass effect along the superior wall of the vessel. SMA: Patent ANDREW: Patent RENAL ARTERIES: Bilateral single renal arteries without significant atherosclerotic disease IMPRESSION: No evidence of thoracic or abdominal aortic aneurysm or dissection. No contrast extravasation in the cholecystectomy bed. Multifocal patchy airspace opacities as above, suggesting pulmonary edema or ARDS. Confluent opacific ation in the left upper lobe may reflect additional pneumonia or sequelae of aspiration. Poorly localized hematoma along the left anterior lower neck. Redemonstration of a looped appearance of the left IJ CVC, its tip present along the distal axillary vein. Right femoral venous catheter has been placed. Up to moderate diffuse distention of proximal small bowel, with gradual transition to nondistended eugenie wel. This suggests ileus rather than bowel obstruction. Mild free intraperitoneal air, may relate to recent laparoscopy. Moderate ascites. Extensive soft tis georgette emphysema along the chest and abdominal wall as above. THIS REPORT CONTAINS FINDINGS THAT MAY BE CRITICAL TO PATIENT CARE. The findings were verbally commun icated via telephone to Madi Durbin MD on 09/30/2024 10:47 PM.
[2024-09-30 23:32] LABS: Anion Gap 32.8 mEq/L (5.0-15.0)
[2024-09-30 23:34] LABS: Potassium 7.8 mEq/L (3.5-5.1)
[2024-09-30 23:50] LABS: Specific Gravity 1.024 (1.005-1.030); Urine Bacteria None Seen /HPF (<20); Urine Bilirubin NEGATIVE (Negative); Urine Blood 3+ (OVER) (Negative); Urine Clarity Extremely Turbid (Clear); Urine Color Light-Orange (Yellow); Urine Crystals Unidentified Few /HPF (None Seen); Urine Culture Reflex Order NOT NEEDED; Urine Glucose TRACE (Negative); Urine Ketones TRACE (Negative); Urine Micro Reflex YN NO BILL MICROSCOPIC; Urine Mucus Slight /HPF (None Seen); Urine Nitrite NEGATIVE (Negative); Urine Protein 3+ (Negative); Urine RBC >50 /HPF (None Seen); Urine Urobilinogen Normal (Normal)
[2024-10-01] MEDS ORDERED: VASOPRESSIN 20 UNIT/ML VIAL ONE ×2 (00:13→00:14)
[2024-10-01] MEDS ORDERED: CALCIUM GLUCONATE 1 GM IVPB 1 GM/50 ML BAG IV ONE ×2 (00:16→01:13)
[2024-10-01] MEDS ORDERED: SODIUM BICARB 50 MEQ/50ML VIAL ONE (00:27)
[2024-10-01] MEDS ORDERED: NA CHLORIDE 0.9% 100 ML ONE (00:28)
[2024-10-01 00:30] LABS: Blood Gas Oxyhemoglobin 93.8 % (94-97); Blood Gas THB 11.3 g/dl (12-18); Blood O2 Saturation 95.9 % (92-98.5)
[2024-10-01 00:43] LABS: Absolute Lymphocytes (CBC) 1.4 K/uL (0.7-4.9); Absolute Monocytes 0.1 K/uL (0.1-1.3); Absolute Neutrophil 1.5 K/uL (1.8-8.0); Basophils % 1.5 % (0-1.3); Eosinophils % 0.7 % (0-4.4); Hematocrit 28.8 % (36.0-45.0); Hemoglobin 9.5 g/dL (12.0-15.0); Lymphocytes % 46.7 % (15.3-44.8); MCH 31.4 pg (27.0-35.0); MCHC 32.9 g/dL (32.0-36.0); MCV 95.4 fL (80-100); Monocytes % 1.7 % (3.3-12.3); Neutrophils % 49.4 % (41.7-73.7); RBC Red Blood Cell Count 3.02 M/uL (3.86-4.86); Red Cell Distribution Width 17.8 % (12.1-15.2)
[2024-10-01] MEDS ORDERED: NACHLORIDE 0.45% 1,000 ML IV ONE (00:48)
[2024-10-01 00:59] LABS: MPV 6.5 fL (7.6-11.3); Nucleated RBC Absolute Count 0.1 (0-0); Nucleated Red Blood Cells % 4.4 % (0-0); Platelets 304 thou/uL (152-406)
[2024-10-01] MEDS ORDERED: NOREPINEPHRINE BITARTRATE/D5W 4 MG/250 ML BAG IV ONE (01:03)
[2024-10-01 04:48] VITALS: TEMP 93.4
[2024-10-01 04:51] VITALS: BP 94/68; O2SAT 99
== END 2024-10-01 04:16 | disposition short-term general hospital (02) ==
LOC: ER 18:42
PROC: 30233N1 Transfusion of Nonautologous Red Blood Cells into Peripheral Vein, Percutaneous Approach (ICD-10-PCS; principal; 2024-10-01)
DX: I46.9 Cardiac arrest, cause unspecified (principal); R57.8 Other shock; E87.5 Hyperkalemia; T81.82XA Emphysema (subcutaneous) resulting from a procedure, initial encounter; G93.1 Anoxic brain damage, not elsewhere classified; K66.8 Other specified disorders of peritoneum; K56.7 Ileus, unspecified; J69.0 Pneumonitis due to inhalation of food and vomit; E87.21 Acute metabolic acidosis; J96.01 Acute respiratory failure with hypoxia; M35.81 Multisystem inflammatory syndrome; Z90.49 Acquired absence of other specified parts of digestive tract
CPT/HCPCS: 31500; 36415; 36430; 36556; 36600; 43753; 51702; 71045; 71275; 74018; 74175; 80048; 80076; 81001; 82805; 83605; 83735; 83880; 84484; 85025; 85610; 86850; 86900; 86901; 86920; 86927; 92950; 93005; 94002; 96372; 99291; 99292; J0171; J0461; J0612; J0692; J1815; J2354; J2470; J7030; J7050; J7613; P9016; P9017; P9047; Q9967